=== PATIENT | male | born 1955 | race Caucasian/White ===

== ENCOUNTER 2016-09-13 14:10 | Emergency (ER) | payer SELFPAY ==
[~2016-09-13] VITALS: Ht 193 cm; Wt 100.0 kg
[~2016-09-13 14:10] MED LIST: CYCL5TAB; LORT5TAB
[2016-09-13 14:12] VITALS: BP 130/98; PULSE 110; RESP 20; TEMP 98.1; O2SAT 97
--- NOTE | 2016-09-13 17:47 | PD ---
HPI Chief Complaint: Syncope/Near-Syncope Time Seen by Provider: 17:45 Travel History International Travel<30 days: No Contact w/Intl Traveler<30days: No Traveled to known affect area: No History of Present Illness HPI according to patient he continues to have episodes of passing out, there is no prodrome, which is what makes dr santiago (pt states he is his pcp) the possiblity of seizures. No actual workup has occurred though. patient is here for initial evaluation [facility] Social History Alcohol Use: No Tobacco Use: No Allergies-Medications (Allergen,Severity, Reaction): Coded Allergies: No Known Allergies (Verified , 09/13/16) Reported Meds & Prescriptions Reported Meds & Active Scripts Active No Active Prescriptions or Reported Medications Review of Systems Except as stated in HPI: all other systems reviewed are Neg Neurologic: Positive: Syncope Physical Exam Narrative GENERAL: SKIN: Warm and dry. HEAD: Atraumatic. Normocephalic. EYES: Pupils equal and round. No scleral icterus. No injection or drainage. ENT: No nasal bleeding or discharge. Mucous membranes pink and moist. NECK: Trachea midline. No JVD. CARDIOVASCULAR: Regular rate and rhythm. RESPIRATORY: No accessory muscle use. Clear to auscultation. Breath sounds equal bilaterally. GASTROINTESTINAL: Abdomen soft, non-tender, nondistended. Hepatic and splenic margins not palpable. MUSCULOSKELETAL: Extremities without clubbing, cyanosis, or edema. No obvious deformities. NEUROLOGICAL: Awake and alert. No obvious cranial nerve deficits. Motor grossly within normal limits. Five out of 5 muscle strength in the arms and legs. Normal speech. PSYCHIATRIC: Appropriate mood and affect; insight and judgment normal. Data Data Last Documented VS Vital Signs Date Time Temp Pulse Resp B/P Pulse Ox O2 Delivery O2 Flow Rate FiO2 09/13/16 14:12 98.1 110 20 130/98 97 Room Air Orders Electrocardiogram (09/13/16 ) Complete Blood Count With Diff (09/13/16 17:49) Comprehensive Metabolic Panel (09/13/16 17:49) B-Type Natriuretic Peptide (09/13/16 17:49) Ckmb (Isoenzyme) Profile (09/13/16 17:49) Troponin I (09/13/16 17:49) Act Partial Throm Time (Ptt) (09/13/16 17:49) Prothrombin Time / Inr (Pt) (09/13/16 17:49) Urinalysis - C+S If Indicated (09/13/16 17:49) Chest, Single Ap (09/13/16 17:49) Ct Brain W/O Iv Contrast(Rout) (09/13/16 17:49) Ecg Monitoring (09/13/16 17:49) Iv Access Insert/Monitor (09/13/16 17:49) Oximetry (09/13/16 17:49) Sodium Chloride 0.9% Flush (Ns Flush) (09/13/16 18:00) Orthostatic Vital Signs (09/13/16 17:49) Thyroid Stimulating Hormone (09/13/16 17:49) Drug Screen, Random Urine (09/13/16:49) Alcohol (Ethanol) (09/13/16 17:49) Salicylates (Aspirin) (09/13/16 17:49) Tylenol (Acetaminophen) (09/13/16 17:49) CKMB (09/13/16 18:00) CKMB% (09/13/16 18:00) Labs Laboratory Tests Test 09/13/16 18:00 White Blood Count 9.3 TH/MM3 Red Blood Count 4.63 MIL/MM3 Hemoglobin 14.2 GM/DL Hematocrit 43.0 % Mean Corpuscular Volume 92.8 FL Mean Corpuscular Hemoglobin 30.6 PG Mean Corpuscular Hemoglobin 33.0 % Concent Red Cell Distribution Width 15.4 % Platelet Count 267 TH/MM3 Mean Platelet Volume 7.5 FL Neutrophils (%) (Auto) 70.6 % Lymphocytes (%) (Auto) 16.9 % Monocytes (%) (Auto) 8.1 % Eosinophils (%) (Auto) 3.8 % Basophils (%) (Auto) 0.6 % Neutrophils # (Auto) 6.6 TH/MM3 Lymphocytes # (Auto) 1.6 TH/MM3 Monocytes # (Auto) 0.8 TH/MM3 Eosinophils # (Auto) 0.4 TH/MM3 Basophils # (Auto) 0.1 TH/MM3 CBC Comment DIFF FINAL Differential Comment Prothrombin Time 10.2 SEC Prothromb Time International 0.9 RATIO Ratio Activated Partial 27.0 SEC Thromboplast Time Sodium Level 136 MEQ/L Potassium Level 3.5 MEQ/L Chloride Level 100 MEQ/L Carbon Dioxide Level 29.7 MEQ/L Anion Gap 6 MEQ/L Blood Urea Nitrogen 10 MG/DL Creatinine 1.02 MG/DL Estimat Glomerular Filtration 75 ML/MIN Rate Random Glucose 175 MG/DL Calcium Level 8.8 MG/DL Total Bilirubin 0.3 MG/DL Aspartate Amino Transf 15 U/L (AST/SGOT) Alanine Aminotransferase 21 U/L (ALT/SGPT) Alkaline Phosphatase 122 U/L Total Creatine Kinase 310 U/L Troponin I LESS THAN 0.02 NG/ML B-Type Natriuretic Peptide 19 PG/ML Total Protein 6.7 GM/DL Albumin 3.1 GM/DL Thyroid Stimulating Hormone 2.200 uIU/ML 3rd Gen Salicylates Level 2.4 MG/DL Acetaminophen Level LESS THAN 2.0 MCG/ML Ethyl Alcohol Level LESS THAN 3 MG/DL [facility] Medical Decision Making Medical Screen Exam Complete: Yes Emergency Medical Condition: Yes Medical Record Reviewed: Yes Differential Diagnosis syncope workup (electrolyte disturbance v orthostasis v ich v dysrythmia) Narrative Course after a thorough evaluation, ct is neg for ich or brain mass, cxr neg for infiltrate, cbc/cmp neg, Diagnosis Primary Impression: Syncope, near Additional Instructions: please see DR SANTIAGO to get a referral to see neurologist for further evaluation. Scripts No Active Prescriptions or Reported Meds Disposition: 01 DISCHARGE HOME Condition: Stable Jordy Nguyen MD Sep 13, 2016 17:47
[2016-09-13 17:50] VITALS: RESP 18; O2SAT 97
[2016-09-13] MEDS ORDERED: SODIUM CHLORIDE 0.9% FLUSH 10 ML FLUSH IVF PRN (18:00)
[2016-09-13 18:21] LABS: AUTOMATED NEUTROPHIL # 6.6 TH/MM3 (1.8-7.7); BASOPHIL # 0.1 TH/MM3 (0-0.2); BASOPHIL % 0.6 % (0.0-2.0); EOSINOPHIL # 0.4 TH/MM3 (0-0.4); EOSINOPHIL % 3.8 % (0.0-4.0); HEMO FLAGS DIFF FINAL; LYMPH % 16.9 % (9.0-44.0); LYMPHOCYTE # 1.6 TH/MM3 (1.0-4.8); MEAN CELL VOLUME 92.8 FL (80.0-100.0); MEAN CORPUSCULAR HEMOGLOBIN 30.6 PG (27.0-34.0); MONO % 8.1 % (0.0-8.0); NEUT % 70.6 % (16.0-70.0); PLATELET COUNT 267 TH/MM3 (150-450); RED BLOOD COUNT 4.63 MIL/MM3 (4.50-5.90); RED CELL DISTRIBUTION WIDTH 15.4 % (11.6-17.2); WHITE BLOOD COUNT 9.3 TH/MM3 (4.0-11.0)
[2016-09-13 18:34] LABS: INTERNATIONAL NORMALIZED RATIO 0.9 RATIO; PROTHROMBIN TIME - PATIENT 10.2 SEC (9.8-11.6)
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
[2016-09-13 18:50] LABS: ALT (GPT) 21 U/L (12-78); ANION GAP 6 MEQ/L (5-15); AST (GOT) 15 U/L (15-37); BICARBONATE 29.7 MEQ/L (21.0-32.0); BLOOD UREA NITROGEN 10 MG/DL (7-18); CHLORIDE 100 MEQ/L (98-107); GLOMERULAR FILTRATION RATE 75 ML/MIN (>89); POTASSIUM 3.5 MEQ/L (3.5-5.1); SODIUM (NA) 136 MEQ/L (136-145)
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
[2016-09-13 19:00] LABS: ACETAMINOPHEN LESS THAN 2.0 MCG/ML (10.0-30.0); ALKALINE PHOSPHATASE 122 U/L (45-117); CREATINE KINASE 310 U/L (39-308); TOTAL BILIRUBIN ADULT 0.3 MG/DL (0.2-1.0)
[2016-09-13 19:10] VITALS: BP 133/70; PULSE 98; RESP 16; O2SAT 99
[2016-09-13 19:13] LABS: CKMB 2.3 NG/ML (0.5-3.6)
--- NOTE | 2016-09-14 14:56 | EKG ---
Date Performed: 09/13/2016 Time Performed: 14:46:11 PTAGE: 60 years EKG: Sinus rhythm POSSIBLE LEFT ATRIAL ENLARGEMENT BORDERLINE ECG NO PREVIOUS TRACING DOCTOR: Guerrero Guthrie Interpretating Date/Time 09/14/2016 14:55:55
== END 2016-09-13 19:27 | disposition home or self-care (01) ==
LOC: NEPD 14:10
DX: R55 Syncope and collapse (principal); R07.89 Other chest pain; R51 Headache
CPT/HCPCS: 70450; 71010; 80053; 80307; 82550; 82552; 83880; 84443; 84484; 85025; 85610; 85730; 93005; 99285

== ENCOUNTER 2016-12-13 19:25 | Emergency (ER) | payer OTHER ==
[~2016-12-13] VITALS: Ht 193 cm; Wt 90.9 kg
[2016-12-13 19:34] VITALS: BP 149/87; PULSE 109; RESP 20; TEMP 98.7; O2SAT 97
[2016-12-13] MEDS ORDERED: NAPR500 PO (19:44)
[2016-12-13] MEDS ORDERED: [UNRECOGNIZED DRUG - CODE] PO (19:44)
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
[2016-12-13 20:44] LABS: AUTOMATED NEUTROPHIL # 6.3 TH/MM3 (1.8-7.7); BASOPHIL # 0.1 TH/MM3 (0-0.2); BASOPHIL % 0.6 % (0.0-2.0); EOSINOPHIL # 0.1 TH/MM3 (0-0.4); HEMATOCRIT 45.3 % (39.0-51.0); HEMO FLAGS DIFF FINAL; LYMPH % 19.9 % (9.0-44.0); LYMPHOCYTE # 1.9 TH/MM3 (1.0-4.8); MEAN CELL VOLUME 95.3 FL (80.0-100.0); MEAN CORPUSCULAR HGB CONC 33.5 % (32.0-36.0); MONO % 12.2 % (0.0-8.0); NEUT % 66.3 % (16.0-70.0); PLATELET COUNT 345 TH/MM3 (150-450); RED BLOOD COUNT 4.76 MIL/MM3 (4.50-5.90); RED CELL DISTRIBUTION WIDTH 17.4 % (11.6-17.2); WHITE BLOOD COUNT 9.5 TH/MM3 (4.0-11.0)
[2016-12-13 21:08] LABS: ANION GAP 9 MEQ/L (5-15); BLOOD UREA NITROGEN 13 MG/DL (7-18); CHLORIDE 108 MEQ/L (98-107); GLOMERULAR FILTRATION RATE 58 ML/MIN (>89); POTASSIUM 3.8 MEQ/L (3.5-5.1); SODIUM (NA) 140 MEQ/L (136-145)
[2016-12-13 21:11] LABS: ALCOHOL LESS THAN 3 MG/DL (0-5)
[2016-12-14 02:21] VITALS: BP 129/74; PULSE 83; RESP 19; O2SAT 97
[2016-12-14 06:30] VITALS: BP 159/82; PULSE 74; RESP 18; O2SAT 99
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
== END 2016-12-14 09:57 | disposition home or self-care (01) ==
LOC: NEPD 19:25 → NEPJ 12-14 09:57
DX: F43.29 Adjustment disorder with other symptoms (principal); Z72.0 Tobacco use
CPT/HCPCS: 80048; 80307; 85025; 99283

== ENCOUNTER 2017-02-25 11:24 | Emergency (ER) | payer SELFPAY ==
[~2017-02-25] VITALS: Ht 193 cm; Wt 90.0 kg
[~2017-02-25 11:24] MED LIST changes: -CYCL5TAB; -LORT5TAB; +NAPR500 PO; +[UNRECOGNIZED DRUG - CODE] PO
[2017-02-25 11:25] VITALS: BP 128/85; PULSE 114; RESP 18; TEMP 98.2; O2SAT 100
--- NOTE | 2017-02-25 12:19 | RADRPT ---
EXAM DATE/TIME: 02/25/2017 11:52 [facility] COMPARISON: No previous studies available for comparison. INDICATIONS : Evaluate for foreign body, dog bite MEDICAL HISTORY : None. SURGICAL HISTORY : None. ENCOUNTER: Initial ACUITY: 1 week PAIN SCORE: 5/10 LOCATION: Left Forearm FINDINGS: Two view examination of the left forearm demonstrates no evidence of fracture or dislocation. Bony m ineralization is normal. Minimal soft tissue thickening about the distal medial forearm. No radiopa que foreign body seen. CONCLUSION: Osseous structures are intact. No radiopaque foreign bodies seen. Tony Thompson MD on February 25, 2017 at 12:16 Board Certified Radiologist. This report was verified electronically.
== END 2017-02-25 11:55 | disposition left against medical advice (07) ==
LOC: NETRI 11:24
DX: S50.872A Other superficial bite of left forearm, initial encounter (principal); W54.0XXA Bitten by dog, initial encounter
CPT/HCPCS: 73090; 99281